=== PATIENT | female | born 1945 | race Caucasian/White ===

== ENCOUNTER 2023-04-18 13:19 | Emergency (ER) | payer OTHER ==
[~2023-04-18] VITALS: Ht 149.9 cm; Wt 70.3 kg
[2023-04-18] MEDS ORDERED: DILTIAZEM ER120 M2 (13:28)
[2023-04-18] MEDS ORDERED: KEPPRA750 MG (13:29)
[2023-04-18] MEDS ORDERED: LIPITOR40 M1 (13:29)
[2023-04-18] MEDS ORDERED: COZAAR25 MG (13:29)
[2023-04-18] MEDS ORDERED: SEROQUEL25 MG (13:30)
[2023-04-18] MEDS ORDERED: LAMICTAL5 MG (13:30)
[2023-04-18] MEDS ORDERED: ZOLOFT25 MG (13:30)
[2023-04-18 14:49] LABS: HEMATOCRIT 36.6 % (36.0-45.00); HEMOGLOBIN 12.2 g/dL (12.0-15.00); MEAN CORPUSCULAR HEMOGLOBIN 30.7 pg (27.00-32.0); MEAN CORPUSCULAR HGB CONC 33.4 g/dl (32.0-36.0); PLATELET COUNT 317 K/uL (150-450); RED BLOOD COUNT 3.98 M/uL (4.00-6.00); RED CELL DISTRIBUTION WIDTH 13.6 % (11.5-14.5)
[2023-04-18 15:11] LABS: CALCIUM 9.2 mg/dL (8.5-10.1); CREATININE SERUM 0.72 mg/dL (0.55-1.02); GFR 78.75; POTASSIUM 3.88 mEq/L (3.5-5.1)
== END 2023-04-18 17:07 | disposition home or self-care (01) ==
LOC: ER 13:19 → EDBD 13:43 → ER 13:43
PROVIDERS: Emergency Medicine
DX: G40.89 Other seizures (principal); I10 Essential (primary) hypertension